=== PATIENT | female | born 1980 | race Caucasian/White ===

== ENCOUNTER 2020-07-21 14:27 | Inpatient (IN) | payer OTHER ==
[~2020-07-21] VITALS: Ht 157.5 cm; Wt 73.6 kg
[2020-07-22] MEDS ORDERED: LEXAPRO20 MG PO (14:24)
[2020-07-22] MEDS ORDERED: ATIVAN1 MG PO (14:25)
[2020-07-22] MEDS ORDERED: CYCLOBENZAPRINE10 MG PO (14:25)
[2020-07-22] MEDS ORDERED: VERAPAMIL HCL360 MG PO (14:25)
[2020-07-22] MEDS ORDERED: PRAVASTATIN SOD10 MG PO (14:25)
[2020-07-22] MEDS ORDERED: HYDROXYZINE HCL10 MG PO (14:26)
[2020-07-25 09:36] LABS: HEMATOCRIT 36.4 % (36.0-48.0); HEMOGLOBIN 12.7 g/dL (12-16); MCH 29.5 pg (26.0-34.0); MCHC 34.9 g/dL (31.0-37.0); MCV 84.5 fL (80.0-100.0); MEAN PLATELET VOLUME 10.9 fL (7.4-10.4); RBC 4.31 10x6/uL (4.00-5.40); RDW 12.4 % (11.5-14.5); WBC 4.7 10x3/uL (4.8-10.8)
[2020-07-25 09:49] LABS: HCG SERUM NEGATIVE (NEGATIVE)
[2020-07-25 09:54] VITALS: BP 133/79; BMI 29.7
--- NOTE | 2020-07-25 10:04 | HP ---
PATIENT: PATRIA ISAAC MEDICAL RECORD: [id number] ACCOUNT: [id number] LOCATION[place] [place] : 76 ADMISSION DATE: 07/25/20 PCP: CRISTHIAN SOTO HISTORY AND PHYSICAL EXAMINATION HISTORY OF PRESENT ILLNESS: Patria is 40. She has a history of a thyroid goiter. It is enlarging, becoming symptomatic, clearly visible when she swallows and giving her difficulty. She has been admitted for total thyroidectomy. PAST MEDICAL HISTORY: Otherwise healthy. PAST SURGICAL HISTORY: times 2. CURRENT MEDICATIONS: Lorazepam, cyclobenzaprine, escitalopram, verapamil, pravastatin, sumatriptan. ALLERGIES: HYDROCODONE. PHYSICAL EXAMINATION: GENERAL: She is healthy appearing. FACE: Normal, symmetric, no lesions. EYES: Sclerae and conjunctivae are normal. EARS: Canals and TMs appear normal. No masses, polyps, or drainage. ORAL CAVITY AND OROPHARYNX: Tongue protrudes in midline. Pharynx is normal. NECK: She has got a significant goiter, isthmus in both lobes, they are enlarged, clearly visible. CHEST: Clear. CARDIOVASCULAR: Regular rate and rhythm, no murmur. EXTREMITIES: Normal. PATHOLOGY: She has had an FNA, which showed colloid and benign follicular cells. No evidence of malignancy. Her TSH is 0.99 most recently with not on any thyroid hormone replacement. IMPRESSION: Symptomatic thyroid goiter. PLAN: Total thyroidectomy. TRANSINT:[id number] Voice Confirmation ID: [id number] DOCUMENT ID: [id number] RAUDEL LEON MD at 1004 CC: [id number] DICTATION DATE: 07/22/20 1100 APPIAN DEVELOPER: 07/22/20 1120 ADM IN [id number] [place] [address]
--- NOTE | 2020-07-25 16:15 | NUR ---
RECEIVED REPORT FROM KAPIL IN PACU, PT ARRIVED TO FLOOR VIA BED ASSISTED BY HOSPITAL STAFF, PT IN STABLE CONDITION WITH NO NEEDS AT THIS TIME
[2020-07-25 18:59] VITALS: BP 131/82
[2020-07-25 20:00] VITALS: BP 117/80
--- NOTE | 2020-07-25 20:48 | NUR ---
ASSUMED CARE OF PT AFTER REPORT/ROUNDS. A&OX4 AND VERBALIZES WANTS/NEEDS CLEARLY AND WITHOUT HESITATION. DID C/O PAIN AND STATES WOULD LIKE TO KEEP PAIN AT 2/10. PRN DIALUDID GIVEN PER PRN ORDER. PT HAD COMPANY AND WAS EATING A CHEESEBURGER FROM [employer]. PT EDUCATION ON SOFT FOODS DONE BEFORE SAME AND PT VERBALIZED UNDERSTANDING TO THIS AND OTHER NURSE PRESENT. ATE CHEESEBURGER AND FRIES AFTER NURSES LEFT ROOM. IN ROOM WATCHING TV AT THIS TIME.
[2020-07-26] VITALS: BP 108/65
[2020-07-26 04:00] VITALS: BP 106/68
--- NOTE | 2020-07-26 07:30 | NUR ---
REC'D IN BED DURING WALKING ROUNDS AWAKE AND ALERT. RESP EVEN AND UNLABORED WITH NO DISTRESS NOTED. CAN EXPRESS NEEDS AND WANTS.NO C/O NOTED OR VOICED AT THIS TIME. ASSESSMENT COMPLETED. C/L IN REACH AT BEDSIDE.
--- NOTE | 2020-07-26 08:04 | OP ---
PATIENT NAME: PATRIA ISAAC MEDICAL RECORD: [id number] :76 LOCATION:[id number] ADMISSION DATE:07/25/20 SURGEON: KAN LEON MD DATE OF OPERATION: 07/25/2020 PREOPERATIVE DIAGNOSIS: Thyroid goiter. POSTOPERATIVE DIAGNOSIS: Thyroid goiter. PROCEDURE: Total thyroidectomy. SURGEON: Kan Leon M.D. ANESTHESIA: General orotracheal. BLOOD LOSS: Less than 10 mL. SPECIMENS: Total thyroid with suture on the right side. COMPLICATIONS: None. 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 DRAINS: A single drain through a separate stab incision inferior to the wound. COMPLICATIONS: None. DISPOSITION: Recovery, stable. DESCRIPTION OF PROCEDURE: The patient was brought to the operating room and placed in supine position, sedated and intubated by anesthesia. She was positioned, prepped and draped in the usual sterile fashion. Horizontal crease was injected with a total of less than 1 mL of 1% lidocaine with 1:100,000 epinephrine. A horizontal incision was made with a 15 blade. This was taken down through the platysma. Then, flaps were elevated superiorly and inferiorly. Four separate 2-0 silk stick ties were placed. The straps muscles and fascia was divided in the midline down to the thyroid gland. Left side was addressed first. The strap muscles were bluntly dissected off. [employer] was used for retraction. The middle thyroid vein was taken down and clipped. A superior pedicle was dissected out and the dissection inferiorly, identified the parathyroid gland. Recurrent laryngeal nerve, which were dissected away. The nerve was not manipulated. Both parathyroid glands were dissected off and the gland was rotated medially. Superior pedicle was taken down clipped with medium clip government affairs manager and some 2-0 silk ties and then the gland was rotated medially and the entire isthmus was really from the trachea. Then, the right side was addressed. The strap muscles were off the thyroid gland with dissection laterally and inferiorly. Left side was quite nodular really with no nodules within the thyroid, but just a large separate nodules, almost with the right side, there was a particularly large nodule little bit different color paler on the wrapped around really behind the tracheoesophageal groove and behind the esophagus posteriorly there. It was a very adherent. It could be dissected separately from the fascia and could be dissected off of the muscles around it, but it was fairly adherent to everything. This was dissected loose. This was what was sent for frozen section, but that nodule particularly was suspicious. It was partially cystic, but considered benign appearing follicular OPERATIVE REPORT [id number] PATRIA ISAAC adenoma. The recurrent laryngeal nerve was identified. The gland was rotated medially. The superior pedicle was taken down, it was rather thick. There was a nodule in the superior pedicle as well that was dissected around. The bipolar cautery was used to some small vessels and that was pulled down and allowed medialization of the rest of the gland, which was rotated medially and dissected off of the trachea completely. Small clip government affairs manager, some 3-0 ties and bipolar cautery were used. The field was completely clean really no significant bleeding was irrigated and inspected carefully. A separate drain was placed through a separate stab incision inferior to the wound. A CARI drain this with the strap muscles were approximated in the midline with 4-0 Vicryl. Then, the head was repositioned. The platysmal layer was closed with interrupted 3-0 Vicryl. Skin was closed with running 6-0 subcuticular Prolene. A 2-0 silk drain stitch was placed. Steri-Strips and Mastisol were applied. She was awakened, extubated, and transported to recovery in good condition. No complications. Voice perfectly normal postop. All counts were correct. TRANSINT:[id number] Voice Confirmation ID: [id number] DOCUMENT ID: [id number] KAN LEON MD at 0804 CC: [id number] DICTATION DATE: 07/25/20 1638 RADIOLOGIC TECHNOLOGY PROGRAM DIRECTOR: 07/26/20 0110 ADM IN [facility] [address] [id number]
[2020-07-26 08:50] VITALS: BP 100/60
[2020-07-26 13:07] VITALS: BMI 29.6
[2020-07-26 14:48] VITALS: BP 102/42
[2020-07-26 17:51] VITALS: BP 98/63
[2020-07-26 18:15] VITALS: Ht 157.5 cm; Wt 73.6 kg
[2020-07-26 20:00] VITALS: BP 98/58
[2020-07-27] VITALS: BP 117/73
[2020-07-27 04:00] VITALS: BP 105/65
--- NOTE | 2020-07-27 06:10 | NUR ---
THIS NURSE ASSUMED CARE OF PT LAST NIGHT AND SHE WAS EMOTIONAL. THERAPEUTIC COMMUNICATION DONE AND PT GIVEN REASSURANCE. PT DID HAVE SOME COMPLAINTS AND REQUESTED TO SPEAK TO CHARGE. RISK MANAGEMENT DIRECTOR NUMBER GIVEN AND PT ABLE TO VERBALIZE HER CONCERNS. PT EXPRESSED FEELING RELIEF AND RESTED WELL T/O THE NIGHT. PT REPORTS PAIN HAS BEEN MANAGEABLE AND DID NOT WANT PAIN MEDS. VERAPAMIL WAS SCHEDULED AND OBTAINED BY THIS NURSE BUT, PT HAD A LOW BP. PT VERBALIZED SHE TAKES MED FOR MIGRAINES. PT TEACHING ABOUT EFFECT OF SAME ON BP AND PT REFUSED MED LAST NIGHT. THIS NURSE DID EXPLAIN TO PT THAT SAME WAS SCHEDULED FOR THIS AM.
--- NOTE | 2020-07-27 07:33 | NUR ---
RECIEVED BEDSIDE REPORT. IN BED SLEEPING. AROUSES TO VOICE. DENIES NEEDS AT THIS TIME. BED LOW POSITION, CALL LIGHT IN REACH. FREE FROM SIGNS OF DISTRESS WILL CONTINUE TO MONITOR.
[2020-07-27 10:11] VITALS: BP 102/67
[2020-07-27] MEDS ORDERED: DILAUDID2 MG PO (10:24)
[2020-07-27] MEDS ORDERED: SYNTHROID100 MCG PO (10:25)
--- NOTE | 2020-07-27 11:03 | NUR ---
DISCHARGE PAPERS COMPLETE. IV CATH REMOVED, CATH TIP INTACT. NO FURTHER QUESTIONS. GATHERED BELONGINGS, LEFT UNIT VIA WHEELCHAIR TO HOME AT THIS TIME.
== END 2020-07-27 11:06 | disposition home or self-care (01) | DRG 627 ==
LOC: D.MS 07-25 09:11 → D.SDCHOLD 07-25 09:11 → D.MS 07-25 16:48
PROVIDERS: Anesthesiology; ADMIT Otolaryngology; ATTEND Otolaryngology
PROC: 0GTH0ZZ Resection of Right Thyroid Gland Lobe, Open Approach (ICD-10-PCS; 2020-07-25)
PROC: 0GTG0ZZ Resection of Left Thyroid Gland Lobe, Open Approach (ICD-10-PCS; principal; 2020-07-25 11:15)
DX: E04.9 Nontoxic goiter, unspecified (principal)